=== PATIENT | male | born 1945 | race Caucasian/White ===

== ENCOUNTER 2016-07-14 13:10 | Inpatient (IN) ==
[2016-07-14] MEDS ORDERED: MORPHINE 2 MG/1 ML SYRINGE IV PRN (14:00)
[2016-07-14] MEDS ORDERED: ENOXAPARIN 100 MG/ML SYRINGE SUBCUT STA (14:00)
[2016-07-14] MEDS ORDERED: ASPIRIN 325 MG TABLET PO STA (14:00)
[2016-07-14] MEDS ORDERED: ONDANSETRON 4 MG/2 ML VIAL IV PRN ×2 (14:00→17:42)
--- NOTE | 2016-07-14 14:03 | EKG Report ---
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
[2016-07-14 14:06] LABS: Basophils # 0.1 10*3/uL (0.0-0.2); Basophils % 1.3 % (0.0-0.8); Eosinophils # 0.4 10*3/uL (0.0-0.87); Hematocrit 37.8 VOL% (42.0-52.0); Hemoglobin 12.6 GM/DL (14.0-18.0); Immature Granulocytes Absolute 0.07 #; Lymphocytes # 2.6 10*3/uL (1.4-4.0); Lymphocytes % 36.2 % (21.2-54.2); Mean Corpuscular HGB Conc 33.3 GM/DL (32-36); Mean Corpuscular Hemoglobin 30 PG (27-34); Mean Corpuscular Volume 91.3 FL (87-102); Mean Platelet Volume 10.8 FL (9.6-12.0); Monocytes # 0.6 10*3/uL (0.11-0.8); Monocytes % 8.4 % (1.7-12.7); Neutrophils # 3.4 10*3/uL (1.4-7.4); Neutrophils % 48.1 % (38.7-73.9); Platelet Count 211 T/CUMM (130-400); Red Blood Count 4.14 MC/CUMM (3.8-5.5); Red Cell Distribution Width 14.6 % (9.3-17.3); White Blood Count 7.1 T/CUMM (4-12)
[2016-07-14] MEDS ORDERED: ASPIRIN 325 MG TABLET ONE (14:10)
[2016-07-14] MEDS ORDERED: ENOXAPARIN 80 MG/0.8 ML SYRINGE SUBCUT ONE (14:10)
--- NOTE | 2016-07-14 14:13 | Emergency Department Note ---
Yoly Pichardo Gwan, am scribing for, and in the presence of, Bryan Mercado MD 14:05 . Jess Pichardo James D, MD, personally performed the services described in this documentation, ascribed by Glory Frederick in my presence, and it is both accurate and complete 412 . Arrival - Arrival Chief Complaint: Chest Pain Stated Complaint: chest pain ED Nursing Triage Note: C/O midsternal chest pain with radiation to left arm onset approx 1245 -pt denies pain at present - pt states that he is having left arm numbness now Mode of Arrival: Ambulatory Limitations: No Limitations Source: Patient, Old Records Reviewed, RN Notes Reviewed - History of Present Illness HPI Narrative: Pt is a 71 y/o male, with a hx HTN, who presents to the chest pain with an onset 1245 today. He described his pain as sharp, that is lasted 1 minute and that his chest pain radiates to his left arm. He denies any hx of heart problems, any nausea, SOB, or diaphoresis. Patient has a SHx of smoking 1ppd cigarettes. No other problems/complaints reported in ED. Onset (ago): hour(s) Consistency: constant Severity: moderate Allergies/Adverse Reactions: Allergies Allergy/AdvReac Type Severity Reaction Status Date / Time No Known Allergies Allergy Unverified 07/14/16 13:20 Home Medications: Home Medications Medication Instructions Recorded Confirmed Type Lisinopril 20 mg PO QPM 07/14/16 07/14/16 History amLODIPine [Norvasc] 10 mg PO QAM 07/14/16 07/14/16 History Review of System - Review of System 12 point system: reviewed and no additional remarkable complaints except as stated - Review of System Constitutional: Present: as per HPI, fever. Absent: chills Eyes: Absent: discharge, pain Cardiovascular: Present: as per HPI, chest pain Genitourinary male: Absent: dysuria, frequency, hematuria Musculoskeletal: Present: as per HPI, arm pain. Absent: back pain, leg pain, neck pain Skin: Absent: rash, lesions Neurological: Absent: headache, weakness Medical,Surgical,& Family Hx - Medical History Cardio: History of: Hypertension - Social History Smoking Status: Current every day smoker Frequency of Alcohol Use: None Type of Drug Use: None Exam Physical Examination: GENERAL: This is a well-nourished, well-developed male in no apparent distress. VITAL SIGNS: HEENT: Head is normocephalic and atraumatic. Pupils are equally round and reactive to light. Extraocular movement are intact. Oropharynx is benign with moist mucous membranes. NECK: Neck is soft and supple without tenderness. There are no masses. There is no lymphadenopathy. LUNGS: Lungs are clear to auscultation bilaterally. Chest rises symmetrically. There is no chest wall tenderness. CV: Heart is regular rate and rhythm without murmurs, rubs, or gallops. ABDOMEN: Abdomen is soft, non-tender to palpation. There are no abnormal masses palpated. There is no organomegaly. Bowel sounds are present and active. SKIN: Skin is warm and dry. No rash. EXTREMITIES: Patient has full range of motion without tenderness. There is no pedal edema. NEUROLOGIC: Awake, alert, and oriented x4. Cranial nerves II through XII are grossly intact. There are no motorsensory deficits. PSYCHIATRIC: Normal affect. Normal mood. Vital Signs: Vital Signs Temperature 98.2 F 07/14/16 13:20 Pulse Rate 90 07/14/16 13:20 Respiratory Rate 18 07/14/16 14:44 Blood Pressure 138/86 07/14/16 13:20 O2 Sat by Pulse Oximetry 98 07/14/16 13:20 Course - Consultations Consultation #1: Discussed with hospitalist. Patient will be admitted to their service. Time: 15:33 Results - Labs CBC & BMP: 07/14/16 13:39 07/14/16 13:39 Lab Results: I have reviewed the patients labs Labs: Laboratory Tests 07/14/16 13:39 Troponin I < 0.015 - EKG EKG results: interpreted by ERMD - Impressions EKG: Normal sinus rhythm with a rate of 81, normal ST-T waves, normal axis. - Diagnostic Findings Procedure: Chest x-ray: image reviewed by me (No cardio megaly, no pleural effusions, no infiltrates.) Disposition Clinical Impression: Chest pain, Essential hypertension, Tobacco abuse Case discussed with: patient Disposition: Still a Patient Condition: Stable Time of Disposition: 15:29
[2016-07-14 14:15] LABS: PT Patient Result 10.7 SECS; Partial Thromboplastin Time 30.8 SECS (0-40)
--- NOTE | 2016-07-14 14:21 | XRay Report ---
XR chest 2V Date: 07/14/2016 2:00 PM History: Chest pain Comparison: None Technique: PA and lateral chest Findings: The heart is small and compressed by the over expanded lungs. Calcification in the aortic knob. Probable chronic scarring in the lungs especially at the lung apices with scattered calcified granulomata. Unremarkable mediastinum with degenerative changes. Impression: COPD with evidence for granulomatous disease and prior chronic scarring. No definite acute cardiopulmonary pathology identified. PROCEDURE INTERPRETED AT [facility] DEPARTMENT OF RADIOLOGY Final Report Signed by: Dr. Patricia Barroso
[2016-07-14 14:23] LABS: Alanine Aminotransferase 22 U/L (16-61); Albumin 3.5 G/DL (3.4-5.0); Alkaline Phosphatase 72 U/L (45-117); Aspartate Amino Transferase 15 U/L (0-37); Bilirubin,Total < 0.39 MG/DL (0.2-1.0); Blood Urea Nitrogen 20 MG/DL (7-18); Calcium 8.7 MG/DL (8.5-10.1); Glucose 93 MG/DL (74-106); Magnesium 2.1 MG/DL (1.8-2.4); Osmolality,Calculated 283.3 MOS/KG (273-304); Potassium 4.2 MMOL/L (3.5-5.1); Sodium 141 MMOL/L (136-145); Total Protein 6.2 G/DL (6.4-8.3)
--- NOTE | 2016-07-14 16:58 | Hospitalist History & Physical ---
<Jan Lezama - Last Filed: 07/14/16 17:18> Assessment and Plan (1) Chest pain Status: Acute Assessment and plan: We will admit, hydrate, and complete cardiac work-up. If positive, will consult cardiology. Current Visit: Yes (2) Essential hypertension Status: Acute Assessment and plan: Will resume home medications and manage blood pressure as needed. Current Visit: Yes (3) Tobacco abuse Status: Acute Assessment and plan: Patient is a current smoker. He has expressed no desire to quit. Will offer nicotine patch if requested. Current Visit: Yes History of Present Illness Chief complaint: chest pain History of present illness: This is very pleasant 71 year old male that presented to the ED this afternoon with a chief compliant of chest pain. He has a medical history of hypertension and nicotine abuse. He reported an episode of acute chest pain on today around 1245. He describes the pain as sharp in quality and lasting 1 minute in duration. He denied diaphoresis, nausea, vomiting, jaw pain, or shortness of breath. He was evaluated. Labs were obtained with a BUN of 20 and creatinine of 2.0 His cardiac enzymes were unremarkable at <0.015. After brief discussion with Dr. Mercado and Dr. Hong, the patient will be admitted under the hospitalists services for continuation of care. Home Medications Medication Instructions Recorded Confirmed Type Lisinopril 20 mg PO QPM 07/14/16 07/14/16 History amLODIPine [Norvasc] 10 mg PO QAM 07/14/16 07/14/16 History Allergies Allergy/AdvReac Type Severity Reaction Status Date / Time No Known Allergies Allergy Unverified 07/14/16 13:20 Medical,Surgical,& Family Hx - Medical History Cardio: History of: Hypertension - Social History Smoking Status: Current every day smoker Frequency of Alcohol Use: None Type of Drug Use: None Marital Status: Single Lives With:: Alone Functional capacity: independent ambulation 12 point system: reviewed and no additional remarkable complaints except as stated Exam - Constitutional Vitals: Period Temp Pulse Resp BP Sys/James Pulse Ox Last 24 Hr 98.2 F 90 18-20 138/86 98 General appearance: normal weight, no acute distress - Head Head exam: Present: normal inspection, normocephalic, atraumatic - Eye Eye exam: Present: EOMI. Absent: conjunctival injection, nystagmus Pupils: Present: CAMILA, normal accommodation - ENT ENT exam: Present: normal exam, normal external ear exam, normal oropharynx - Neck Neck exam: Present: normal inspection. Absent: lymphadenopathy, meningismus, tenderness, thyromegaly - Respiratory Respiratory exam: Present: clear to auscultation bilaterally. Absent: rales, rhonchi, stridor, wheezes - Cardiovascular Cardiovascular exam: Present: regular rate and rhythm. Absent: carotid bruit, diastolic murmur, gallop, JVD, rubs, systolic murmur - GI/Abdominal GI/Abdominal exam: Present: normal bowel sounds, soft. Absent: guarding, mass, tenderness - Extremities Exam Extremities exam: Present: normal inspection, full ROM, edema - Back Exam Back exam: Present: normal inspection - Neurological Exam Neurological exam: Present: alert, oriented X3, CN II-XII intact - Psychiatric Psychiatric exam: Present: normal affect, normal mood - Skin Skin exam: Present: normal color, warm, dry Results - Labs CBC & BMP: 07/14/16 13:39 07/14/16 13:39 Lab Results: I have reviewed the past 24 hour labs Quality Measures - VTE Deep Vein Thrombosis/Pulmonary Embolism Present on Admission: No <Danilo Hong - Last Filed: 07/14/16 17:30> History of Present Illness History of present illness: Patient seen and examined with GRETA Lezama, agree with history, assessment and plan as documented. Admit for ACS rule out. Trend troponons. History of smoking and htn, might benefit from a stress test, inpatient vs outpatient. Also has an JW, unknown baseline, will hydrate gently. Exam - Constitutional Vitals: Period Temp Pulse Resp BP Sys/James Pulse Ox Last 24 Hr 71-76 16-16 125-134/71-78 99-100 Results - Labs CBC & BMP: 07/14/16 13:39 07/14/16 13:39
[2016-07-14] MEDS ORDERED: ZALEPLON 5 MG CAPSULE PO PRN (17:42)
[2016-07-14] MEDS ORDERED: ACETAMINOPHEN 325 MG TABLET PO PRN (17:42)
[2016-07-14] MEDS ORDERED: NITROGLYCERIN SL 0.4 MG TABLET SL PRN (17:42)
[2016-07-14] MEDS ORDERED: ENOXAPARIN 40 MG/0.4 ML SYRINGE SUBCUT SCH (18:00)
[2016-07-14 18:13] LABS: Magnesium 2.2 MG/DL (1.8-2.4); Risk Ratio 3.49; VLDL CHOLESTEROL 38.2 MG/DL
[2016-07-14] MEDS: SODIUM CHLORIDE 0.45% 1,000 ML IV SCH (18:25)
--- NOTE | 2016-07-14 19:19 | Ultrasound Report ---
Exam: Carotid ultrasound Date: 07/14/2016 Comparison: None Technique: Duplex scans of the carotid and vertebral arteries using B-mode/Greco scale imaging and Doppler spectral analysis and color flow. Reason: Chest pain, numbness left arm Findings: The right ICA measures 5.7 mm in diameter and the left ICA measures 6.6 mm in diameter. Color-flow documented in the visualized arteries. The peak systolic velocities are as follows: Right CCA: 93.7 cm/s Right ICA: 84.9 cm/s Right ECA: 88.8 cm/s Left CCA: 82.5 cm/s Left ICA: 98.1 cm/s Left ECA: 90.4 cm/s The peak systolic ICA/CCA velocity ratios are as follows: 0.9 on the right and 1.2 on the left. Antegrade flow is present in both vertebral arteries. Impression:[Less than 50% stenosis in both internal carotid arteries with heterogeneous plaque formation especially in the left carotid arteries. Antegrade flow in both vertebral arteries.] The Society of Radiologists in Ultrasound consensus conference criteria was used. The Ultrasound images were captured and stored. PROCEDURE INTERPRETED AT [facility] DEPARTMENT OF RADIOLOGY Final Report Signed by: Dr. Patricia Barroso
--- NOTE | 2016-07-14 19:21 | Ultrasound Report ---
Exam: US renal Bilateral Date: 07/14/2016 5:42 PM Comparison: None Indication: Hypertension Technique:[Multiple transabdominal real-time scans were obtained of the kidneys. Color flow scans obtained. Ultrasound images were captured as ordered.] Findings: Right kidney measures 87 x 36 x 48 mm. Left kidney measures 93 x 51 x 41 mm. 19 mm upper pole and 13 and 18 mm mid pole simple appearing left renal cysts. Inhomogeneous echogenicity in the kidneys with no hydronephrosis. Impression: Generalized cortical loss in the kidneys with inhomogeneous echogenicity which can be seen with medical renal disease. Simple appearing left renal cysts with no hydronephrosis. PROCEDURE INTERPRETED AT [facility] DEPARTMENT OF RADIOLOGY Final Report Signed by: Dr. Patricia Barroso
[2016-07-14] MEDS: CARVEDILOL 6.25 MG TABLET PO SCH (20:44)
[2016-07-14] MEDS: FAMOTIDINE 20 MG TABLET PO SCH (20:44)
[2016-07-14] MEDS ORDERED: LISINOPRIL 20 MG TABLET PO SCH (21:00)
[2016-07-15 07:58] LABS: Basophils # 0.1 10*3/uL (0.0-0.2); Eosinophils # 0.4 10*3/uL (0.0-0.87); Eosinophils % 5.1 % (0.00-10.9); Hematocrit 36.5 VOL% (42.0-52.0); Immature Granulocytes % 0.9 %; Immature Granulocytes Absolute 0.06 #; Lymphocytes # 2.4 10*3/uL (1.4-4.0); Lymphocytes % 34.5 % (21.2-54.2); Mean Corpuscular HGB Conc 32.9 GM/DL (32-36); Mean Corpuscular Hemoglobin 30 PG (27-34); Mean Corpuscular Volume 91.7 FL (87-102); Mean Platelet Volume 10.6 FL (9.6-12.0); Monocytes # 0.7 10*3/uL (0.11-0.8); Monocytes % 9.5 % (1.7-12.7); Neutrophils # 3.4 10*3/uL (1.4-7.4); Platelet Count 187 T/CUMM (130-400); Red Blood Count 3.98 MC/CUMM (3.8-5.5); Red Cell Distribution Width 14.6 % (9.3-17.3); White Blood Count 6.9 T/CUMM (4-12)
[2016-07-15 08:25] LABS: Alanine Aminotransferase 18 U/L (16-61); Albumin 3.3 G/DL (3.4-5.0); Alkaline Phosphatase 68 U/L (45-117); Aspartate Amino Transferase 13 U/L (0-37); Bilirubin,Total < 0.39 MG/DL (0.2-1.0); Blood Urea Nitrogen 18 MG/DL (7-18); Calcium 8.3 MG/DL (8.5-10.1); Glucose 89 MG/DL (74-106); Osmolality,Calculated 279.4 MOS/KG (273-304); Potassium 4.2 MMOL/L (3.5-5.1); Sodium 140 MMOL/L (136-145)
[2016-07-15] MEDS ORDERED: ASPIRIN EC 325 MG TABLET PO SCH (09:00)
[2016-07-15] MEDS ORDERED: NICOTINE 14 MG/24 HR PATCH TRANSDERM SCH (09:00)
[2016-07-15] MEDS: CARVEDILOL 6.25 MG TABLET PO SCH (09:41)
[2016-07-15] MEDS: FAMOTIDINE 20 MG TABLET PO SCH (09:41)
[2016-07-15] MEDS: SODIUM CHLORIDE 0.45% 1,000 ML IV SCH (09:42)
[2016-07-15 15:17] VITALS: BP 131/70
--- NOTE | 2016-07-15 15:52 | Discharge Summary ---
Hospital Course - Hospital Course Hospital Course: 71 year old male that presented to the ED yesterday with a chief compliant of chest pain. He has a medical history of hypertension and nicotine abuse. He reported an episode of acute chest pain on around 12:45 on day of admission. He describes the pain as sharp in quality and lasting only about 1 minute in duration. He denied diaphoresis, nausea, vomiting, jaw pain, or shortness of breath. He was admitted to [facility] to rule ACS. ACS was ruled out with serial Trop. His initial Labs showed a creatinine of 2.0 . Renal US showing features of CKD. His cardiac enzymes were unremarkable at <0.015 x 2. On day of DC pain had completely subsided, no repeat episodes and no EKG changes on admission. He was hemodynamically stable and requested DC to follow up with his PCP as out patient - Time spent with patient Time with patient DS: Greater than 30 minutes Specialty Discharge - Follow Up or Referrals Discharge Plan - Discharge Data Disposition: Disch To Home/Self Care Condition at Discharge: Stable Discharge Diet: advance to your usual diet, low salt diet Activity: resume usual activities as tolerated - Discharge Medications New Carvedilol [Coreg] 6.25 mg PO BID #60 tablet Continue sulfaSALAzine [Sulfasalazine Dr] 500 mg PO DAILY amLODIPine [Norvasc] 10 mg PO QAM Lisinopril 20 mg PO QPM - Follow Up or Referral - Forms/Instructions Instructions: Coronary Artery Disease (GEN), Heart Healthy Diet (GEN), Cigarette Smoking and Your Health (GEN), How to Stop Smoking, Gasket Winder ( GEN) Additional Discharge Instructions: PCP follow up in 1 week Exam - Constitutional Vitals: Period Temp Pulse Resp BP Sys/Jmaes Pulse Ox Last 24 Hr 98.2 F-99.3 F 60-76 16-20 111-145/56-81 95-100 Exam: General appearance: normal weight, no acute distress - Head Head exam: Present: normal inspection, normocephalic, atraumatic - Eye Eye exam: Present: EOMI. Absent: conjunctival injection, nystagmus Pupils: Present: CAMILA, normal accommodation - ENT ENT exam: Present: normal exam, normal external ear exam, normal oropharynx - Neck Neck exam: Present: normal inspection. Absent: lymphadenopathy, meningismus, tenderness, thyromegaly - Respiratory Respiratory exam: Present: clear to auscultation bilaterally. Absent: rales, rhonchi, stridor, wheezes - Cardiovascular Cardiovascular exam: Present: regular rate and rhythm. Absent: carotid bruit, diastolic murmur, gallop, JVD, rubs, systolic murmur - GI/Abdominal GI/Abdominal exam: Present: normal bowel sounds, soft. Absent: guarding, mass, tenderness - Extremities Exam Extremities exam: Present: normal inspection, full ROM, edema - Back Exam Back exam: Present: normal inspection - Neurological Exam Neurological exam: Present: alert, oriented X3, CN II-XII intact - Psychiatric Psychiatric exam: Present: normal affect, normal mood - Skin Skin exam: Present: normal color, warm, dry Discharge Results Labs on day of discharge: Labs from last 24 hours 07/15/16 07/15/16 07/14/16 07:39 07:39 23:52 WBC 6.9 RBC 3.98 Hgb 12.0 L Hct 36.5 L MCV 91.7 MCH 30 MCHC 32.9 RDW 14.6 Plt Count 187 MPV 10.6 Neut % (Auto) 49.0 Lymph % (Auto) 34.5 [place] % (Auto) 9.5 Eos % (Auto) 5.1 Baso % (Auto) 1.0 H Neut # (Auto) 3.4 Lymph # (Auto) 2.4 [place] # (Auto) 0.7 Eos # (Auto) 0.4 Baso # (Auto) 0.1 Immature Gran % 0.9 Nucleated RBC % 0.0 Immature Gran # 0.06 Nucleated RBCs # 0.00 Sodium 140 Potassium 4.2 Chloride 109 H Carbon Dioxide 25 Anion Gap 10.2 BUN 18 Creatinine 1.80 H GFR Calculation 42 BUN/Creatinine Ratio 10.00 Glucose 89 Calculated Osmolality 279.4 Calcium 8.3 L Magnesium 2.0 Total Bilirubin < 0.39 AST 13 ALT 18 Alkaline Phosphatase 68 Troponin I < 0.015 Total Protein 6.0 L Albumin 3.3 L Globulin 2.7 Albumin/Globulin Ratio 1.2 Triglycerides Cholesterol LDL Cholesterol VLDL Cholesterol HDL Cholesterol Heart Disease Risk Ratio 07/14/16 07/14/16 20:13 17:09 WBC RBC Hgb Hct MCV MCH MCHC RDW Plt Count MPV Neut % (Auto) Lymph % (Auto) [place] % (Auto) Eos % (Auto) Baso % (Auto) Neut # (Auto) Lymph # (Auto) [place] # (Auto) Eos # (Auto) Baso # (Auto) Immature Gran % Nucleated RBC % Immature Gran # Nucleated RBCs # Sodium Potassium Chloride Carbon Dioxide Anion Gap BUN Creatinine GFR Calculation BUN/Creatinine Ratio Glucose Calculated Osmolality Calcium Magnesium 2.2 Total Bilirubin AST ALT Alkaline Phosphatase Troponin I < 0.015 Total Protein Albumin Globulin Albumin/Globulin Ratio Triglycerides 191 H Cholesterol 129 LDL Cholesterol 80.0 VLDL Cholesterol 38.2 HDL Cholesterol 37 L Heart Disease Risk Ratio 3.49 - Imaging and Cardiology Procedure: Ultrasound: report reviewed by me DS: Provider Date of admission: 07/14/16 15:42 Primary care physician: . No PCP Attending physician on admission: KRISTINA BOWDEN Consults: 07/14/16 17:42 Consult to Cardiac Rehabilitation [CONS] Routine Reason for Cardiac Rehabilitation: Risk Factor Modification Discharging clinician: Anish Isaacs MD
--- NOTE | 2016-07-15 19:28 | ECHO Report ---
Tobias Garcia Exam Date: 07/15/2016 11:43 Referring Physician: Technologist: Bharati Dinero MALVIN Age: 71 Ht (in): 72 Wt (lb): 161 Gender: M Exam Location: [facility] Echo Indications: Chest pain, unspecified, Essential (primary) hypertension BP: 120 / 60 HR: 66 Rhythm: Sinus Technical Quality: Fair IMPRESSIONS 1. Left ventricle is normal size systolic function with ejection fraction 55%. Normal wall thickness with grade 1 diastolic dysfunction. 2. Left atrium is normal size. 3. Right ventricle mildly increased in size with normal systolic function. 4. Right atrium mild to moderately dilated. 5. Valvular structures overall anatomically normal without any significant Doppler abnormalities. 6. No evidence of significantly elevated right-sided pressures based on tricuspid valve regurgitant velocities MEASUREMENTS (Male / Female) Normal Values 2D ECHO LV Diastolic Diameter PLAX 4.3 cm 4.2 - 5.9 / 3.9 - 5.3 cm LV Systolic Diameter PLAX 3.4 cm LV Fractional Shortening PLAX 20.6 % IVS Diastolic Thickness 1.0 cm 0.6 - 1.0 / 0.6 - 0.9 cm LVPW Diastolic Thickness 1.0 cm 0.6 - 1.0 / 0.6 - 0.9 cm RV Internal Dim ED PLAX 4.2 cm Aortic Root Diameter 3.3 cm LA Systolic Diameter LX 3.2 cm 3.0 - 4.0 / 2.7 - 3.8 cm DOPPLER TR Peak Velocity 235.0 cm/s TR Peak Gradient 22.1 mmHg FINDINGS Left Ventricle Normal left ventricular cavity size. Normal left ventricular wall thickness. Left ventricular ejection fraction is estimated at 55 %. Grade 1 diastolic dysfunction. Right Ventricle Mildly increased right ventricular size. Systolic function appears to be normal. Right Atrium Moderately increased right atrial size. Left Atrium The left atrium is normal in size. Mitral Valve Morphologically normal mitral valve. Trace mitral valve regurgitation. Aortic Valve Morphologically normal aortic valve without significant sclerosis or stenosis. There is no aortic regurgitation. Tricuspid Valve Morphologically normal tricuspid valve. Trace tricuspid valve regurgitation. Tricuspid regurgitation velocities suggest a PAP of 32 mmHg. Pulmonic Valve Morphologically normal pulmonic valve without significant stenosis. There is no pulmonic regurgitation. Pericardium Normal pericardium without effusion. Aorta Normal ascending aorta dimension. Max Pryor MD (Electronically Signed) Final Date: 15 July 2016 19:27
== END 2016-07-15 16:59 | disposition home or self-care (01) | DRG 313 ==
LOC: N.ED 13:10 → SUATTDRO 15:42 → N.EDINP 15:42 → N.TELES 17:32
PROVIDERS: ADMIT Nurse Practitioner; ATTEND Internal Medicine

== ENCOUNTER 2016-08-27 18:20 | Inpatient (IN) ==
[2016-08-27] MEDS ORDERED: METOCLOPRAMIDE 10 MG/2 ML VIAL IV STA (18:31)
[2016-08-27] MEDS ORDERED: METOCLOPRAMIDE 10 MG/2 ML VIAL ONE (18:32)
[2016-08-27] MEDS ORDERED: SODIUM CHLORIDE 0.9% 500 ML IV STA (18:34)
[2016-08-27 19:01] LABS: Basophils # 0.1 10*3/uL (0.0-0.2); Basophils % 0.4 % (0.0-0.8); Eosinophils # 0.2 10*3/uL (0.0-0.87); Hematocrit 41.5 VOL% (42.0-52.0); Hemoglobin 14.3 GM/DL (14.0-18.0); Immature Granulocytes % 0.8 %; Immature Granulocytes Absolute 0.14 #; Lymphocytes # 1.8 10*3/uL (1.4-4.0); Lymphocytes % 9.8 % (21.2-54.2); Mean Corpuscular HGB Conc 34.5 GM/DL (32-36); Mean Corpuscular Hemoglobin 31 PG (27-34); Mean Corpuscular Volume 88.9 FL (87-102); Mean Platelet Volume 10.7 FL (9.6-12.0); Monocytes % 5.8 % (1.7-12.7); Neutrophils # 14.7 10*3/uL (1.4-7.4); Neutrophils % 82.2 % (38.7-73.9); Platelet Count 294 T/CUMM (130-400); Red Blood Count 4.67 MC/CUMM (3.8-5.5); Red Cell Distribution Width 14.2 % (9.3-17.3); White Blood Count 17.8 T/CUMM (4-12)
[2016-08-27 19:18] LABS: Alanine Aminotransferase 22 U/L (16-61); Albumin 3.7 G/DL (3.4-5.0); Alkaline Phosphatase 93 U/L (45-117); Aspartate Amino Transferase 15 U/L (0-37); Bilirubin,Total < 0.39 MG/DL (0.2-1.0); Blood Urea Nitrogen 25 MG/DL (7-18); Calcium 9.6 MG/DL (8.5-10.1); Glucose 110 MG/DL (74-106); Osmolality,Calculated 281.5 MOS/KG (273-304); Potassium 4.2 MMOL/L (3.5-5.1); Sodium 139 MMOL/L (136-145); Total Protein 7.3 G/DL (6.4-8.3)
[2016-08-27] MEDS ORDERED: PROMETHAZINE 25 MG/1 ML VIAL ONE (20:33)
[2016-08-27] MEDS ORDERED: PROMETHAZINE 25 MG/1 ML VIAL IM STA (20:41)
--- NOTE | 2016-08-27 21:07 | CT Report ---
CT abdomen pelvis wo con Indication: Lower abdominal pain Comparison: None. Technique: CT of the abdomen and pelvis was performed without administration of intravenous contrast. Coronal and sagittal reformatted images were additionally created and submitted for review. The total DLP is 308 mGy*cm. Dose reduction: This CT exam was performed using one or more of the following dose reduction techniques: Automated exposure control, automated adjustment of the mA and/or KV according to patient size, or use of iterative reconstruction technique. Findings: Very minimal posterior basilar dependent atelectatic changes are noted bilaterally. Lung bases are otherwise clear. There is no pleural or pericardial effusion. ABDOMEN: Liver/Gallbladder: No biliary ductal dilatation or gallstones. Unenhanced liver is otherwise grossly within normal limits. Spleen: No acute findings. Pancreas: No acute findings. Adrenals: Within normal limits in appearance. Kidneys: Both kidneys are essentially symmetric in size with no evidence of calculi or hydronephrosis. There is no hydroureter. No bladder calculi are visualized. There are bilateral exophytic hypodense renal lesions. On the left, the lesion measures up to 1.8 cm and is slightly hyperdense and may represent a cyst containing hemorrhagic or proteinaceous contents. When reviewing prior studies, a prior renal ultrasound 07/14/2016, this lesion likely corresponds to a cystic (not solid) lesion seen previously. A solid lesion would be an alternate consideration. At the lower pole the right kidney, there is a hypodense 2.2 cm lesion which is most compatible with a simple cyst. Bowel/mesentery: There is somewhat prominent small bowel dilatation within the central upper abdomen with a focal transition point in the right lower quadrant (axial image 108). No definite focal lesion is identified at this area although there is suggestion of mild mucosal edema. Lack of oral and intravenous contrast limits evaluation. No free fluid/air within the abdomen. No mesenteric adenopathy. Multiple colonic diverticula are noted. There is no CT evidence of acute diverticulitis Retroperitoneum: No evidence of aortic aneurysm or significant retroperitoneal adenopathy. PELVIS: Bladder is unremarkable for degree of distention. Prostate is not enlarged. No free fluid. No adenopathy in the pelvis. BONES: No acute or suspicious osseous abnormalities are identified. IMPRESSION: Moderate diffuse small bowel distention with transition point in the right lower quadrant most compatible with high-grade partial small bowel obstruction. A definite focal lesion is not identified and the findings may be related to prior surgery/adhesions. Clinical correlation is recommended. No free fluid/air within the abdomen. 08/27/2016 8:54 PM PROCEDURE INTERPRETED AT [facility] DEPARTMENT OF RADIOLOGY Final Report Signed by: Chan Terry
[2016-08-27] MEDS ORDERED: SODIUM CHLORIDE 0.9% 1,000 ML IV STA (21:33)
[2016-08-27] MEDS ORDERED: MORPHINE 2 MG/1 ML SYRINGE IV STA (21:34)
[2016-08-27] MEDS ORDERED: MORPHINE 2 MG/1 ML SYRINGE ONE (21:40)
--- NOTE | 2016-08-27 22:20 | Emergency Department Note ---
Kalee Pichardo Kasabria, am scribing for, and in the presence of, Edel Sparrow MD 18:38. Kyara Pichardo Leanne, MD, personally performed the services described in this documentation, ascribed by Yecenia Granda in my presence, and it is both accurate and complete . Arrival - Arrival Chief Complaint: Nausea/Vomiting/Diarrhea Stated Complaint: N/V ED Nursing Triage Note: Pt c/o Upper abd pain, weakness, nausea, and vomiting x 6 since 0900 this am. Denies diarrhea. Mode of Arrival: Stretcher Limitations: No Limitations Source: Patient - History of Present Illness HPI Narrative: This is a 71 y/o white male presenting to the ED with c/o abdominal pain, weakness, nausea, vomiting but denies diarrhea that onset at 0900 this morning. The vomiting on at 11:30am. Pt has a PMHx of Crohn's disease. He is a patient of Dr. Bond. His last flare up was 20 years ago. He has some chills but denies fever, diarrhea, back pain, PEREZ, vision change, vertigo, hematochezia, and dysuria. His last BM was normal. Consistency: constant Severity: moderate Allergies/Adverse Reactions: Allergies Allergy/AdvReac Type Severity Reaction Status Date / Time No Known Allergies Allergy Unverified 08/27/16 18:21 Home Medications: Home Medications Medication Instructions Recorded Confirmed Type Lisinopril 20 mg PO QPM 07/14/16 08/27/16 History amLODIPine [Norvasc] 10 mg PO QAM 07/14/16 08/27/16 History sulfaSALAzine [Sulfasalazine Dr] 500 mg PO DAILY 07/14/16 08/27/16 History Review of System - Review of System 12 point system: reviewed and no additional remarkable complaints except as stated - Review of System Constitutional: Absent: chills, fever, weakness Eyes: Absent: vision change Head/Ears/Nose/Throat: Absent: nasal drainage Respiratory: Absent: cough, wheezing Cardiovascular: Absent: chest pain, dyspnea on exertion Gastrointestinal: Present: abdominal pain, nausea, vomiting. Absent: diarrhea Genitourinary male: Absent: dysuria Musculoskeletal: Absent: arm pain, back pain, leg pain, neck pain Skin: Absent: rash Neurological: Absent: headache, weakness, confusion, vertigo Psychiatric: Absent: anxiety Endocrine: Absent: fatigue Hematological/Lymphatic: Absent: easy bleeding Allergic/Immunologic: Absent: facial swelling Medical,Surgical,& Family Hx - Medical History Cardio: History of: Hypertension Genitourinary: History of: Prostate Problems (cancer) Gastrointestinal: History of: Crohn's Disease (remission) - Surgical History Abdominal Surgeries: Surgical HX of: Appendectomy - Family History Family History: Reports;: Family Hypertension - Social History Smoking Status: Current every day smoker Exam Vital Signs: Vital Signs Temperature 98.0 F 08/27/16 18:50 Pulse Rate 93 H 08/27/16 18:50 Respiratory Rate 18 08/27/16 18:50 Blood Pressure 132/98 08/27/16 18:50 O2 Sat by Pulse Oximetry 99 08/27/16 18:23 - General General appearance: alert, in no apparent distress - Head Head exam: Present: atraumatic, normocephalic, normal inspection - Eye Eye exam: Present: normal appearance, PERRL, EOMI - ENT ENT exam: Present: normal exam, normal oropharynx, mucous membranes moist, TM's normal bilaterally, normal external ear exam - Neck Neck exam: Present: normal inspection, full ROM, trachea midline. Absent: tenderness - Chest Chest inspection: Present: normal inspection, symmetric chest wall rise. Absent : tenderness - Respiratory Respiratory exam: Present: normal lung sounds bilaterally - Cardiovascular Cardiovascular exam: Present: regular rate, normal rhythm, normal heart sounds - Abdominal Exam Abdominal exam: Present: soft, distention (mildly distended ), normal bowel sounds. Absent: tenderness - Extremities Exam Extremities exam: Present: normal inspection, full ROM, normal capillary refill. Absent: tenderness, pedal edema, calf tenderness - Back Exam Back exam: Present: normal inspection, full ROM. Absent: tenderness - Neurological Exam Neurological exam: Present: alert, oriented X3, CN II-XII intact, normal gait, reflexes normal - Psychiatric Psychiatric exam: Present: normal affect, normal mood - Skin Skin exam: Present: warm, dry, intact, normal color. Absent: rash, diaphoresis Results - Labs CBC & BMP: 08/27/16 18:49 08/27/16 18:49 Lab Results: I have reviewed the patients labs Labs: Laboratory Tests 08/27/16 08/27/16 18:49 18:49 WBC 17.8 H RBC 4.67 Hgb 14.3 Hct 41.5 L MCV 88.9 MCH 31 MCHC 34.5 RDW 14.2 Plt Count 294 MPV 10.7 Neut % (Auto) 82.2 H Lymph % (Auto) 9.8 L [place] % (Auto) 5.8 Eos % (Auto) 1.0 Baso % (Auto) 0.4 Neut # (Auto) 14.7 H Lymph # (Auto) 1.8 [place] # (Auto) 1.0 H Eos # (Auto) 0.2 Baso # (Auto) 0.1 Immature Gran % 0.8 Nucleated RBC % 0.0 Immature Gran # 0.14 Nucleated RBCs # 0.00 Sodium 139 Potassium 4.2 Chloride 106 Carbon Dioxide 23 Anion Gap 14.2 BUN 25 H Creatinine 2.10 H GFR Calculation 35 BUN/Creatinine Ratio 11.00 Glucose 110 H Calculated Osmolality 281.5 Calcium 9.6 Total Bilirubin < 0.39 AST 15 ALT 22 Alkaline Phosphatase 93 Total Protein 7.3 Albumin 3.7 Globulin 3.6 H Albumin/Globulin Ratio 1.0 L Lipase 154.0 - Diagnostic Findings Procedure: CT Abdomen and Pelvis: report reviewed by me (Moderate diffuse small bowel distention with transition point in the right lower quadrant most compatible with highg-bowel obstruction. A definite focal lesion is not identified and the findings may be related to prior surgery/adhesions. Clincal correlation is recommended. No free/fluid/air within the abdomen.) Disposition Clinical Impression: Partial small bowel obstruction Case discussed with: patient Additional Instructions: admit to hospitalist
--- NOTE | 2016-08-27 23:04 | Hospitalist History & Physical ---
Assessment and Plan (1) Partial small bowel obstruction Status: Acute Current Visit: Yes (2) Crohns disease Status: Acute Current Visit: Yes Qualifiers: Gastrointestinal tract location: small intestine Digestive disease complication type: unspecified complication Qualified Code(s): K50.019 - Crohn 's disease of small intestine with unspecified complications (3) Essential hypertension Status: Acute Current Visit: No (4) Tobacco abuse Status: Acute Current Visit: No (5) Chronic kidney disease, stage 3 Status: Acute Assessment and plan: Plan: Conservative management at this time. No NG tube for now, unless intractable nausea and vomiting occur N.p.o. except meds GI and surgical evaluation Gentle hydration, supportive care for pain and nausea Current Visit: Yes History of Present Illness Chief complaint: Acute onset abdominal pain nausea and vomiting History of present illness: Mr. Garcia is a 71 year old male with Crohn's disease, hypertension, history of appendectomy and prostate surgery, who is here with acute onset of abdominal pain and nausea and vomiting around 9 AM today. He denies hematemesis. He denies flatus or BM today. His last bowel movement was yesterday. He had a CT abdomen pelvis showing high-grade partial SBO, and possible adhesions. His pain is rated an 8 out of 10 at worst, relieved with pain medication in the ER. His nausea has been relieved with antiemetics. He has diffuse lower abdominal pain, nonradiating. His symptoms have been constant and worsening since this morning. Home Medications Medication Instructions Recorded Confirmed Type Lisinopril 20 mg PO QPM 07/14/16 08/27/16 History amLODIPine [Norvasc] 10 mg PO QAM 07/14/16 08/27/16 History sulfaSALAzine [Sulfasalazine Dr] 500 mg PO DAILY 07/14/16 08/27/16 History Allergies Allergy/AdvReac Type Severity Reaction Status Date / Time No Known Allergies Allergy Unverified 08/27/16 18:21 Medical,Surgical,& Family Hx - Medical History Cardio: History of: Hypertension Genitourinary: History of: Prostate Problems (cancer) Gastrointestinal: History of: Crohn's Disease (remission) - Surgical History Abdominal Surgeries: Surgical HX of: Appendectomy - Family History Family History: Reports;: Family Hypertension - Social History Smoking Status: Current every day smoker Frequency of Alcohol Use: None Type of Drug Use: None Marital Status: Unknown Functional capacity: independent ambulation Review of systems: A 12 point review of systems is negative except as specified in the HPI Exam - Constitutional Vitals: Period Temp Pulse Resp BP Sys/James Pulse Ox Last 24 Hr 98.0 F-98.0 F 93-93 18-18 132-132/98-98 99 Exam: EXAM: CONSTITUTIONAL: non toxic, NAD HEENT: NC, AT, OP benign, CAMILA, EOMI CV: RRR + 2/6 systolic ejection murmur RESP: clear B/L, no w/r/r GI: abd soft, mild diffuse lower abdominal tenderness, ND, + hypoactive bowel sounds INTEGUMENTARY: no lesions or rash EXTREMITIES: no c/c/e NEURO: no focal deficits PSYCH: unremarkable, A/O x3 Results - Labs CBC & BMP: 08/28/16 00:24 08/28/16 00:25 Lab Results: I have reviewed the past 24 hour labs - Diagnostic Findings Procedure: CT Abdomen and Pelvis: image reviewed by me, report reviewed by me
[2016-08-27] MEDS ORDERED: ACETAMINOPHEN 325 MG TABLET PO PRN (23:10)
[2016-08-27] MEDS ORDERED: ONDANSETRON 4 MG/2 ML VIAL IV PRN (23:10)
[2016-08-27] MEDS ORDERED: MORPHINE 2 MG/1 ML SYRINGE IV PRN (23:10)
[2016-08-27] MEDS ORDERED: METOPROLOL TARTRATE 5 MG/5 ML VIAL IV PRN (23:14)
[2016-08-27] MEDS ORDERED: hydrALAZINE 20 MG/1 ML VIAL IV PRN (23:14)
[2016-08-28 00:57] LABS: Basophils # 0.1 10*3/uL (0.0-0.2); Basophils % 0.4 % (0.0-0.8); Eosinophils # 0.1 10*3/uL (0.0-0.87); Eosinophils % 0.4 % (0.00-10.9); Hematocrit 39.4 VOL% (42.0-52.0); Hemoglobin 13.2 GM/DL (14.0-18.0); Immature Granulocytes Absolute 0.16 #; Lymphocytes # 1.7 10*3/uL (1.4-4.0); Lymphocytes % 9.9 % (21.2-54.2); Mean Corpuscular HGB Conc 33.5 GM/DL (32-36); Mean Corpuscular Hemoglobin 30 PG (27-34); Mean Corpuscular Volume 89.5 FL (87-102); Monocytes # 0.8 10*3/uL (0.11-0.8); Monocytes % 4.6 % (1.7-12.7); Neutrophils # 13.9 10*3/uL (1.4-7.4); Neutrophils % 83.7 % (38.7-73.9); Platelet Count 289 T/CUMM (130-400); White Blood Count 16.6 T/CUMM (4-12)
[2016-08-28 01:10] LABS: Alanine Aminotransferase 15 U/L (16-61); Albumin 3.3 G/DL (3.4-5.0); Alkaline Phosphatase 82 U/L (45-117); Aspartate Amino Transferase 17 U/L (0-37); Bilirubin,Total < 0.39 MG/DL (0.2-1.0); Blood Urea Nitrogen 25 MG/DL (7-18); Glucose 120 MG/DL (74-106); Osmolality,Calculated 285.3 MOS/KG (273-304); Potassium 4.8 MMOL/L (3.5-5.1); Sodium 141 MMOL/L (136-145); Total Protein 6.2 G/DL (6.4-8.3)
[2016-08-28] MEDS: DEXTROSE 5% NACL 0.45% 1,000 ML IV SCH (01:55)
[2016-08-28] MEDS: CIPROFLOXACIN INJ 400 MG in PREMIX 1 EACH IV SCH ×3 (01:57→23:55)
[2016-08-28] MEDS: methylPREDNISolone SOD SUC 40 MG/1 ML VIAL IV SCH ×4 (02:01→23:55)
[2016-08-28] MEDS: metroNIDAZOLE INJ 500 MG in PREMIX 1 EACH IV SCH ×4 (04:11→23:55)
--- NOTE | 2016-08-28 09:58 | Hospitalist Progress Note ---
Assessment and Plan (1) Essential hypertension Status: Acute Assessment and plan: Controlled prn metoprolol and hydralazine Current Visit: No (2) Tobacco abuse Status: Acute Current Visit: No (3) Partial small bowel obstruction Status: Acute Assessment and plan: Surgery consulted, NPO for now Patient clinically improving Current Visit: Yes (4) Crohns disease Status: Acute Current Visit: Yes Qualifiers: Gastrointestinal tract location: small intestine Digestive disease complication type: unspecified complication Qualified Code(s): K50.019 - Crohn 's disease of small intestine with unspecified complications (5) Chronic kidney disease, stage 3 Status: Acute Assessment and plan: Creatinine is 2.0, baseline Current Visit: Yes Hospitalist: Subjective Interval history: No acute events overnight. Patient reports that he feels much better today. Denies abdominal pain or nausea. Exam - Constitutional Vitals: Period Temp Pulse Resp BP Sys/James Pulse Ox Last 24 Hr 98.0 F-100.0 F 73-93 16-20 108-142/67-98 97-100 General appearance: normal weight - Head Head exam: Present: normocephalic, atraumatic - Eye Eye exam: Present: EOMI Pupils: Present: CAMILA - ENT ENT exam: Present: normal exam - Neck Neck exam: Present: normal inspection - Respiratory Respiratory exam: Present: clear to auscultation bilaterally. Absent: wheezes - Cardiovascular Cardiovascular exam: Present: regular rate and rhythm - GI/Abdominal GI/Abdominal exam: Present: hypoactive bowel sounds, soft. Absent: tenderness, rebound - Extremities Exam Extremities exam: Present: normal inspection - Back Exam Back exam: Present: normal inspection - Neurological Exam Neurological exam: Present: alert, oriented X3 - Psychiatric Psychiatric exam: Present: normal affect, normal mood - Skin Skin exam: Present: warm, intact Results - Labs CBC & BMP: 08/28/16 00:24 08/28/16 00:25
--- NOTE | 2016-08-28 09:59 | XRay Report ---
XR abdomen 1V Clinical Information: Abdominal Pain nausea and vomiting Comparison: None Findings: Bowel gas pattern is nonspecific and within normal limits. No abnormally gas-filled dilated small bowel loops are identified to suggest obstruction. There is no free air identified. Scattered fecal material is noted throughout colon, which is otherwise nondilated. No abnormal focal soft tissue masses or calcific densities are identified in the abdomen or pelvis. Lung bases appear predominantly clear. There is no acute osseous abnormality. No suspicious osseous lesions are identified. Impression: No acute radiographic abnormality in the abdomen. Correlate with CT abdomen and pelvis dated 08/27/2016 for additional findings. PROCEDURE INTERPRETED AT [facility] DEPARTMENT OF RADIOLOGY Final Report Signed by: Chan Terry
--- NOTE | 2016-08-28 10:49 | General Surgery Consult Note ---
Assessment and Plan - Time spent with patient Time spent with patient: Less than 30 minutes (1) Crohns disease Status: Acute Assessment and plan: Impression: Crohn's disease with possible partial small bowel obstruction. Plan: Agree with present antibiotics. 2. Observation and IV fluids. 3. GI consult. 4. Primarily medical management. Current Visit: Yes Qualifiers: Gastrointestinal tract location: small intestine Digestive disease complication type: unspecified complication Qualified Code(s): K50.019 - Crohn 's disease of small intestine with unspecified complications History of Present Illness Chief complaint: Nausea and vomiting with abdominal pain history of Crohn's disease History of present illness: Mr. Garcia is a 71 year old male white who apparently was diagnosed to have Crohn's disease some 30 years ago has been on Azulfidine since. He has appendix removed 30 years ago and that is how they discovered that he had Crohn' s disease. Apparently he has done well without any problems until last night when he came in because of some nausea and vomiting. His labs did not look unusually bad with slight elevation of white count at this time. CT scan was performed that may be a partial small bowel obstruction fluid in the small bowel present at this time but really unremarkable. He was put in on some IV antibiotics we will consult to see him. Since the symptoms are most likely related somewhat to her flareup of Crohn's disease he would not be a surgical candidate at this point time. We need to treat him aggressively to get any potential Crohn's under control and to decide whether or not he is a candidate for Humira. Will let GI have a look at him and see what they think they need to go with him and give him a little time to see if he is going to resolve and not require any more than just supportive care. Home Medications Medication Instructions Recorded Confirmed Type Lisinopril 20 mg PO QPM 07/14/16 08/27/16 History amLODIPine [Norvasc] 10 mg PO QAM 07/14/16 08/27/16 History sulfaSALAzine [Sulfasalazine Dr] 500 mg PO DAILY 07/14/16 08/27/16 History Allergies Allergy/AdvReac Type Severity Reaction Status Date / Time No Known Allergies Allergy Unverified 08/27/16 18:21 Medical,Surgical,& Family Hx - Medical History Cardio: History of: Hypertension Genitourinary: History of: Prostate Problems (cancer) Gastrointestinal: History of: Crohn's Disease (remission) - Surgical History Abdominal Surgeries: Surgical HX of: Appendectomy - Family History Family History: Reports;: Family Hypertension - Social History Smoking Status: Current every day smoker Frequency of Alcohol Use: None Type of Drug Use: None 12 point system: reviewed and no additional remarkable complaints except as stated Exam - Constitutional Vitals: Period Temp Pulse Resp BP Sys/James Pulse Ox Last 24 Hr 98.0 F-100.0 F 73-93 16-20 108-142/67-98 97-100 General appearance: no acute distress - Head Head exam: Present: normal inspection - ENT ENT exam: Present: normal exam - Neck Neck exam: Present: normal inspection - Respiratory Respiratory exam: Present: clear to auscultation bilaterally - Cardiovascular Cardiovascular exam: Present: RRR - GI/Abdominal GI/Abdominal exam: Present: hypoactive bowel sounds, soft. Absent: distended, mass, tenderness - Extremities Exam Extremities exam: Present: normal inspection - Back Exam Back exam: Present: normal inspection - Neurological Exam Neurological exam: Present: alert, oriented X3, CN II-XII intact - Skin Skin exam: Present: normal color, warm, dry Results - Labs CBC & BMP: 08/28/16 00:24 08/28/16 00:25 Lab Results: I have reviewed the past 24 hour labs - Diagnostic Findings Procedure: CT Abdomen and Pelvis: report reviewed by me (CT changes noted without clear area of the obstruction)
--- NOTE | 2016-08-28 10:51 | Gastrointestinal Consult Note ---
Assessment and Plan - Time spent with patient Time spent with patient: Greater than 30 minutes (1) Crohns disease Status: Acute Current Visit: Yes Qualifiers: Gastrointestinal tract location: small intestine Digestive disease complication type: unspecified complication Qualified Code(s): K50.019 - Crohn 's disease of small intestine with unspecified complications (2) Partial small bowel obstruction Status: Acute Current Visit: Yes (3) Other specified counseling Status: Acute Current Visit: Yes History of Present Illness History of present illness: Mr. Garcia is a 71 year old male Home Medications Medication Instructions Recorded Confirmed Type Lisinopril 20 mg PO QPM 07/14/16 08/27/16 History amLODIPine [Norvasc] 10 mg PO QAM 07/14/16 08/27/16 History sulfaSALAzine [Sulfasalazine Dr] 500 mg PO DAILY 07/14/16 08/27/16 History Allergies Allergy/AdvReac Type Severity Reaction Status Date / Time No Known Allergies Allergy Unverified 08/27/16 18:21 Medical,Surgical,& Family Hx - Medical History Cardio: History of: Hypertension Genitourinary: History of: Prostate Problems (cancer) Gastrointestinal: History of: Crohn's Disease (remission) - Surgical History Abdominal Surgeries: Surgical HX of: Appendectomy - Family History Family History: Reports;: Family Hypertension - Social History Smoking Status: Current every day smoker Frequency of Alcohol Use: None Type of Drug Use: None Exam - Constitutional Vitals: Period Temp Pulse Resp BP Sys/James Pulse Ox Last 24 Hr 98.0 F-100.0 F 73-93 16-20 108-142/67-98 97-100 Results - Labs CBC & BMP: 08/28/16 00:24 08/28/16 00:25 Note Addendum: PLEASE NOTE -- automatic citation of patient information is unavoidable in this electronic note. I have made a reasonable effort to review the information cited , but it is not a part of my evaluation, impression, or recommendation unless specifically discussed in the dictated text that follows. As well, voice recognition software was used in the creation of this clinical note. Reasonable effort was made to identify and correct gross errors. Despite proofreading, errors in staff midwife/apprenticeship director may be present, including nonsense verbiage at times. If you encounter such an error, please contact me at for discussion and correction. -- Dorene Chief complaint: abdominal pain, partial small bowel obstruction History of present illness: This is a new patient, a 71-year-old male with prior diagnosis of Crohn's disease seen by consultation for evaluation of abdominal pain and partial small bowel obstruction. The patient is admitted to the hospitalist service under the care of Dr. Hong with a primary diagnosis of same. The patient was admitted through the emergency department yesterday with primary complaint of nausea, vomiting, and abdominal pain. Evaluation at that time revealed leukocytosis and partial small bowel obstruction as mentioned. The patient was started on crystalloid support, intravenous steroid, and broad- spectrum antibiotic. With this, he reports improvement of symptoms overnight. He now reports feeling well. He has not eaten since he has been here but does have a tray of clear liquid dinner available at bedside. He has not seen a correctional facility psychiatrist for management of his crimes disease for more than 10 years. He was previously seen by Dr. Green. He has been on sulfasalazine for many years and reports that he has rarely had an exacerbation of symptoms. His usual bowel pattern is fluctuated with three or four bowel movements per day, sometimes firm, sometimes soft. He rarely if ever sees blood in his stool. His last endoscopic evaluation was about three years ago when he was admitted at [facility] under similar circumstances. He is anxious to go home. Patient denies fever, chills, night sweats, rigors, headache, dizziness, neck pain, visual changes, redness of the eyes, dysphagia, odynophagia, difficulty chewing, chest pain, shortness of breath, regurgitation, hematemesis, proctalgia , constipation, dysuria, skin changes, temperature regulation issues, flushing, easy bleeding/bruising, musculoskeletal pain, mental status change, numbness/ weakness in the extremities, yellowing of the eyes/skin, cutaneous eruptions, allergies to food or drug, family history of gastrointestinal cancer and colon polyps, and other complaints in general. Review of systems: 12 point review of systems was negative except as documented above. Outpatient medications: sulfasalazine, Norvasc, lisinopril Inpatient medications: Tylenol, ciprofloxacin, Flagyl, Solu-Medrol, D51/2NS infusion, hydralazine, [place], Zofran, sulfasalazine Past Medical History: Crohn's disease, hypertension, prostate cancer Social history: positive tobacco. Negative alcohol Family history: no gastrointestinal cancers Physical examination: Vital Signs: Current vital signs reviewed and documented above. General Appearance: well-appearing. Not acutely ill. Head: Normocephalic. Neck: Palpation of the neck revealed no abnormalities. Eyes: No scleral icterus. No scleral injection. No conjunctival pallor. Oral Cavity: Odor of breath was normal. No drooling was observed. Lips showed no abnormalities. Floor of the mouth showed no abnormalities. Pharynx: Oropharynx was normal. Lungs: Respiration rhythm and depth was normal. Cardiovascular: Heart rate and rhythm were normal. No murmurs were appreciated. Abdomen: abdomen was not distended. Abdominal palpation revealed no tenderness and no hepatosplenomegaly. Ascites was not discovered. Abdominal auscultation revealed positive bowel sounds. Musculoskeletal System: Musculoskeletal system was grossly normal. Neurological: level of consciousness was normal. Speech was normal. Skin: General appearance was normal. Color and pigmentation were normal. No skin lesions. Laboratory: white blood count 16.6, hemoglobin 13.2, hematocrit 39.4, platelets 289, ALT 15, AST 17, alkaline phosphatase 82, total protein 6.2, albumin 3.3 Radiology: -- abdominal plane film, August 28, 2016: no acute abnormality in the abdomen -- CT of the abdomen and pelvis, August 27, 2016: moderate diffuse small bowel distention with transition point in the right lower quadrant most compatible with high-grade partial small bowel obstruction; definite focal lesions not identified Impressions: 1. Partial small bowel obstruction -- the patient seems to have had spontaneous reduction of the small bowel obstruction. Follow up plane film reveals no dilation of the intestinal lumen. The patient feels well at present with no discomfort. He will need endoscopic evaluation in the near future but this does not need to be done urgently. He also needs to have a correctional facility psychiatrist that sees him regularly for management of his Crohn's disease. It would be reasonable to continue him on broad-spectrum antibiotic for about two weeks. It would also be reasonable to continue him on oral steroid, in a tapering fashion , for 1 to 2 months. The patient is anxious to discharge home but I would recommend observation at least through the evening tonight to allow him opportunity to advance through clear liquids into a regular diet. I will sign his case out to Dr. Villavicencio and he can follow-up in the outpatient clinic. 2. Crohn's disease -- as discussed above. 3. Other specified counseling -- The patient was seen for greater than 30 minutes. The patient was counseled for greater than 50% of this time regarding differential diagnosis, likely diagnosis, diagnostic and therapeutic alternatives, risks/benefits/alternatives of medications and procedures, and plan of care generally. The patient expressed understanding and wishes to proceed. Recommendations: -- liquid diet at dinner, advance at breakfast if tolerated -- continue sulfasalazine -- continue broad-spectrum antibiotic for two weeks -- continue oral steroid, tapered over 1 to 2 months -- follow-up in the outpatient gastroenterology clinic for consideration of endoscopic evaluation -- thank you for this consultation. Dr. Villavicencio will assume G.I. care for this patient tomorrow.
[2016-08-28] MEDS: sulfaSALAzine 500 MG TABLET PO SCH ×2 (13:12→13:17)
[2016-08-29 06:09] LABS: Basophils % 0.1 % (0.0-0.8); Immature Granulocytes Absolute 0.21 #; Lymphocytes # 1.5 10*3/uL (1.4-4.0); Lymphocytes % 7.2 % (21.2-54.2); Mean Corpuscular HGB Conc 34.3 GM/DL (32-36); Mean Corpuscular Hemoglobin 31 PG (27-34); Mean Corpuscular Volume 89.5 FL (87-102); Monocytes # 0.8 10*3/uL (0.11-0.8); Monocytes % 3.7 % (1.7-12.7); Neutrophils # 18.3 10*3/uL (1.4-7.4); Platelet Count 241 T/CUMM (130-400); Red Blood Count 3.91 MC/CUMM (3.8-5.5); Red Cell Distribution Width 14.4 % (9.3-17.3); White Blood Count 20.8 T/CUMM (4-12)
[2016-08-29 06:38] LABS: Hypochromasia Slight; Microcytosis Slight
[2016-08-29 06:39] LABS: Calcium 8.8 MG/DL (8.5-10.1); Magnesium 2.2 MG/DL (1.8-2.4); Osmolality,Calculated 284.4 MOS/KG (273-304); Platelet Estimate Normal; Potassium 4.8 MMOL/L (3.5-5.1)
[2016-08-29] MEDS: methylPREDNISolone SOD SUC 40 MG/1 ML VIAL IV SCH ×2 (08:41→17:42)
[2016-08-29] MEDS: metroNIDAZOLE INJ 500 MG in PREMIX 1 EACH IV SCH ×2 (08:43→17:42)
[2016-08-29] MEDS: sulfaSALAzine 500 MG TABLET PO SCH (08:46)
[2016-08-29] MEDS: DEXTROSE 5% NACL 0.45% 1,000 ML IV SCH ×3 (08:47→17:40)
[2016-08-29] MEDS ORDERED: amLODIPine 10 MG TABLET PO SCH (09:00)
--- NOTE | 2016-08-29 09:26 | Gastrointestinal Progress Note ---
Assessment and Plan (1) Partial small bowel obstruction Status: Acute Assessment and plan: 08/29-no complaints of abdominal pain. Tolerating diet at present time. Afebrile. No bowel movement or flatus since admission. Last bowel movement Monday. [place] records pending. Continuing IV antibiotics at this time. Plan an addendum to followed by Dr. Villavicencio. Current Visit: Yes Gastroenterology - PN: Subj Interval history: CC: Abdominal pain, partial SBO Patient is seen awake alert sitting up in bed. States he had an uneventful night. He was admitted on Monday with onset of abdominal pain, nausea vomiting that began approximately Monday morning. States that his that day progressed the pain became more severe nature. He has a history of Crohn's however states he has not required treatment for this in many years. His last endoscopy was done at [facility] approximately 3 years ago with EGD and colonoscopy. He cannot recall what the findings were at that time. The pain is much improved at this time. He is tolerating clear liquid diet. Denies any nausea vomiting or abdominal pain. Other than some mild soreness. Afebrile. WBCs are mildly elevated at 20,000 however he is currently on steroid therapy. CT of abdomen on admission showed moderate diffuse small bowel distention with transition point in the right lower quadrant. His only surgical history is reported to be surgery related to his prostate cancer years ago. He reports that he has not been following up regularly for his Crohn's disease. Abdomen soft, nontender. ROS: Denies shortness of breath chest pain Exam (Progress Note) - Constitutional Vitals: Period Temp Pulse Resp BP Sys/James Pulse Ox Last 24 Hr 97.7 F-98.5 F 73-88 17-18 109-130/62-75 94-100 General appearance: normal weight, no acute distress - Head Head exam: Present: normal inspection, normocephalic - Eye Eye exam: Present: other (Lids and conjunctivae are unremarkable). Absent: scleral icterus - ENT ENT exam: Present: normal exam, normal oropharynx - Neck Neck exam: Present: normal inspection - Respiratory Respiratory exam: Present: clear to auscultation bilaterally. Absent: rales, rhonchi, wheezes - Cardiovascular Cardiovascular exam: Present: regular rate and rhythm. Absent: diastolic murmur , JVD, systolic murmur - GI/Abdominal GI/Abdominal exam: Present: normal bowel sounds, soft. Absent: ascites, distended, mass, organomegaly, tenderness - Extremities Exam Extremities exam: Present: normal inspection, full ROM - Back Exam Back exam: Present: normal inspection - Neurological Exam Neurological exam: Present: alert, oriented X3 - Psychiatric Psychiatric exam: Present: normal affect, normal mood - Skin Skin exam: Present: normal color, warm, dry Results - Labs CBC & BMP: 08/29/16 05:24 08/29/16 05:24 Lab Results: I have reviewed the past 24 hour labs Specialty Discharge - Follow Up or Referrals Follow up with: Asher Crockett MD [Physician] -
[2016-08-29] MEDS: CIPROFLOXACIN INJ 400 MG in PREMIX 1 EACH IV SCH (13:01)
--- NOTE | 2016-08-29 13:37 | General Surgery Progress Note ---
Assessment and Plan (1) Crohns disease Status: Acute Assessment and plan: Impression: Crohn's disease with possible partial small bowel obstruction. Plan: Agree with present antibiotics. 2. Observation and IV fluids. 3. GI consult. 4. Primarily medical management. 08/29/2016. Patient with Crohn's disease but is better does not seem to have any symptoms to suggest bowel obstruction at this time. He is very ambulatory get about without any unusual problems. Awaiting for GI as this assessment evaluation at this point time. Current Visit: Yes Qualifiers: Gastrointestinal tract location: small intestine Digestive disease complication type: unspecified complication Qualified Code(s): K50.019 - Crohn 's disease of small intestine with unspecified complications Subjective Patient reports: Present: no new complaints, feels better, tolerating a regular diet, afebrile Exam - Constitutional Vitals: Period Temp Pulse Resp BP Sys/James Pulse Ox Last 24 Hr 97.7 F-98.8 F 73-90 18-20 109-154/62-77 94-100 General appearance: no acute distress - Head Head exam: Present: normal inspection - ENT ENT exam: Present: normal exam - Neck Neck exam: Present: normal inspection - Respiratory Respiratory exam: Present: clear to auscultation bilaterally - Cardiovascular Cardiovascular exam: Present: RRR - GI/Abdominal GI/Abdominal exam: Present: hypoactive bowel sounds, soft. Absent: distended, tenderness - Extremities Exam Extremities exam: Present: normal inspection - Back Exam Back exam: Present: normal inspection - Neurological Exam Neurological exam: Present: alert, oriented X3, CN II-XII intact - Skin Skin exam: Present: normal color, warm, dry Results - Labs CBC & BMP: 08/29/16 05:24 08/29/16 05:24 Lab Results: I have reviewed the past 24 hour labs Specialty Discharge - Follow Up or Referrals Follow up with: Asher Crockett MD [Physician] -
--- NOTE | 2016-08-29 15:18 | Discharge Summary ---
Hospital Course - Hospital Course Hospital Course: Mr. Garcia is a 71 year old male with Crohn's disease, hypertension, history of appendectomy and prostate surgery, who was admitted with acute onset of abdominal pain and nausea and vomiting around 9 AM the day of admission. He denies hematemesis. He denies flatus or BM today. His last bowel movement was yesterday. He had a CT abdomen pelvis showing high-grade partial SBO, and possible adhesions. His pain is rated an 8 out of 10 at worst, relieved with pain medication in the ER. His nausea has been relieved with antiemetics. He had diffuse lower abdominal pain, nonradiating. His symptoms have been constant and worsening since the morning of admission. He was admitted to the hospitalist service for continuation of care. He was started on ciprofloxacin, flagyl and solumedrol. Surgery and GI were consulted. He improved rather quickly , tolerating a soft diet today. Surgery recommended medical management. GI believes that due to his rapid improvement this is more consistent with adhesion related small bowel obstruction. GI recommends a two week course of ciprofloxacin with outpatient follow-up with them. He has now reached maximal benefit of inpatient stay and will be discharged home. - Time spent with patient Time with patient DS: Less than 30 minutes Diagnosis - Discharge Diagnosis (1) Essential hypertension Status: Chronic (2) Tobacco abuse Status: Chronic (3) Partial small bowel obstruction Status: Resolved (4) Crohns disease Status: Chronic (5) Chronic kidney disease, stage 3 Status: Chronic Specialty Discharge - Follow Up or Referrals Follow up with: Asher Peters MD [Physician] - Jovani Villavicencio MD [Physician] - 1 Month Discharge Plan - Discharge Data Disposition: Disch To Home/Self Care Condition at Discharge: Stable Discharge Diet: high fiber diet Activity: increase activity as tolerated Hygiene: no restrictions Weight Bearing at Discharge: weight bear as tolerated Driving: no restrictions Contact your physician if you experience:: fever over 101, Nausea/Vomiting, pain uncontrolled by pain medications - Discharge Medications New predniSONE TAB [PredniSONE] 20 mg PO DAILY #25 tablet Ciprofloxacin Tab [Cipro Tab] 500 mg PO BID #28 tablet Continue sulfaSALAzine [Sulfasalazine Dr] 500 mg PO DAILY amLODIPine [Norvasc] 10 mg PO QAM Lisinopril 20 mg PO QPM - Follow Up or Referral Follow Up: Asher Peters MD [Physician] - - Forms/Instructions Instructions: Crohn Disease (DC), Bowel Obstruction (DC) Exam - Constitutional Vitals: Period Temp Pulse Resp BP Sys/James Pulse Ox Last 24 Hr 97.7 F-98.8 F 73-90 18-20 109-154/62-77 94-100 General appearance: normal weight - Head Head exam: Present: normocephalic, atraumatic - Eye Eye exam: Present: EOMI Pupils: Present: CAMILA - Neck Neck exam: Present: normal inspection - Respiratory Respiratory exam: Present: clear to auscultation bilaterally. Absent: rhonchi, wheezes - Cardiovascular Cardiovascular exam: Present: regular rate and rhythm - GI/Abdominal GI/Abdominal exam: Present: normal bowel sounds, soft. Absent: tenderness, rebound - Extremities Exam Extremities exam: Present: normal inspection - Back Exam Back exam: Present: normal inspection - Neurological Exam Neurological exam: Present: alert, oriented X3 - Psychiatric Psychiatric exam: Present: normal affect, normal mood - Skin Skin exam: Present: warm, intact Discharge Results Procedures and tests throughout hospitalization: Pending Orders 08/27/16 23:12 Blood Culture Stat Labs on day of discharge: Labs from last 24 hours 08/29/16 08/29/16 05:24 05:24 WBC 20.8 H RBC 3.91 Hgb 12.0 L Hct 35.0 L MCV 89.5 MCH 31 MCHC 34.3 RDW 14.4 Plt Count 241 MPV 11.0 Neut % (Auto) 88.0 H Lymph % (Auto) 7.2 L [place] % (Auto) 3.7 Eos % (Auto) 0.0 Baso % (Auto) 0.1 Neut # (Auto) 18.3 H Lymph # (Auto) 1.5 [place] # (Auto) 0.8 Eos # (Auto) 0.0 Baso # (Auto) 0.0 Immature Gran % 1.0 Nucleated RBC % 0.0 Immature Gran # 0.21 Nucleated RBCs # 0.00 Platelet Estimate Normal Hypochromasia Slight Microcytosis Slight Sodium 140 Potassium 4.8 Chloride 108 H Carbon Dioxide 22 Anion Gap 14.8 BUN 27 H Creatinine 1.70 H GFR Calculation 45 BUN/Creatinine Ratio 15.00 Glucose 110 H Calculated Osmolality 284.4 Calcium 8.8 Magnesium 2.2 Preliminary micro results at discharge 08/28/16 00:25 Blood Culture - Preliminary Blood No growth at 1 day 08/28/16 00:25 Blood Culture - Preliminary Blood No growth at 1 day DS: Provider Date of admission: 08/27/16 23:10 Primary care physician: . No PCP Attending physician on admission: Scotty Anderson DO Consults: 08/27/16 23:10 Consult to Physician [CONS] Routine Comment: high grade partial sbo, crohns dz Consulting Provider: Consult to Specialist Group: Surgery When should Consulting Provider be notified: In am Person Notified: DR PETERS Date Notified: 08/28/16 Time Notified: 07:54 08/28/16 01:07 Consult to Physician [CONS] Routine Comment: partial sbo, crohns Consulting Provider: Consult to Specialist Group: Gastroenterology When should Consulting Provider be notified: In am Person Notified: DR CASTAÑEDA Date Notified: 08/28/16 Time Notified: 07:55 Discharging clinician: Danilo Hong MD
[2016-08-29 16:48] VITALS: BP 121/68
[2016-08-29] MEDS ORDERED: LISINOPRIL 20 MG TABLET PO SCH (19:00)
== END 2016-08-29 16:25 | disposition home or self-care (01) | DRG 389 ==
LOC: EDBD → EDUNIT# → N.ED 18:20 → SUATTDRO 23:10 → N.EDINP 23:10 → N.3E 23:35
PROVIDERS: ADMIT Internal Medicine; ATTEND Internal Medicine

== ENCOUNTER 2020-03-12 02:23 | Inpatient (IN) ==
[2020-03-12] MEDS ORDERED: GLUCAGON 1 MG VIAL IM PRN (04:57)
[2020-03-12] MEDS ORDERED: DEXTROSE 50% 25 GM/50 ML VIAL IV PRN (04:57)
[2020-03-12] MEDS ORDERED: MORPHINE 4 MG/1 ML VIAL IV PRN (05:03)
[2020-03-12] MEDS ORDERED: PROMETHAZINE 25 MG/1 ML VIAL IM PRN (05:04)
[2020-03-12] MEDS ORDERED: ONDANSETRON 4 MG/2 ML VIAL IV PRN (05:05)
[2020-03-12] MEDS: DEXTROSE 5% NACL 0.45% 1,000 ML IV SCH (05:22)
[2020-03-12] MEDS: metroNIDAZOLE INJ 500 MG in PREMIX 1 EACH IV SCH ×3 (05:24→19:10)
[2020-03-12] MEDS ORDERED: methylPREDNISolone SOD SUC 40 MG/1 ML VIAL IV SCH (06:00)
[2020-03-12] MEDS: CIPROFLOXACIN INJ 400 MG in PREMIX 1 EACH IV SCH ×2 (08:01→21:15)
[2020-03-12 08:58] LABS: Basophils # 0.1 10*3/uL (0.0-0.2); Basophils % 0.3 % (0.0-0.8); Eosinophils % 0.1 % (0.00-10.9); Hematocrit 37.3 VOL% (42.0-52.0); Hemoglobin 12.7 GM/DL (14.0-18.0); Immature Granulocytes % 0.6 %; Immature Granulocytes Absolute 0.12 #; Lymphocytes # 1.5 10*3/uL (1.4-4.0); Lymphocytes % 7.2 % (21.2-54.2); Mean Corpuscular Volume 90.8 FL (87-102); Mean Platelet Volume 10.8 FL (9.6-12.0); Monocytes % 5.7 % (1.7-12.7); Neutrophils % 86.1 % (38.7-73.9); Platelet Count 259 T/CUMM (130-400); Red Blood Count 4.11 MC/CUMM (3.8-5.5); White Blood Count 21.1 T/CUMM (4-12)
[2020-03-12 09:18] LABS: Hypochromasia 1+; Lymphocytes 6 % (20-55); Microcytosis 1+; Nucleated Red Blood Cells 1 (0-5); Platelet Estimate Adequate; Segmented Neutrophils 87 % (50-85); Total Cells Counted 100
[2020-03-12 09:24] LABS: Albumin 3.1 G/DL (3.4-5.0); Bilirubin,Total 0.7 MG/DL (0.2-1.0); Calcium 8.5 MG/DL (8.5-10.1); Total Protein 6.6 G/DL (6.4-8.3)
[2020-03-12] MEDS ORDERED: LORazepam 2 MG/1 ML VIAL IV ONE (19:25)
[2020-03-12] MEDS: methylPREDNISolone SOD SUC 40 MG/1 ML VIAL IV SCH (21:15)
[2020-03-13] MEDS: metroNIDAZOLE INJ 500 MG in PREMIX 1 EACH IV SCH ×5 (00:22→23:56)
[2020-03-13] MEDS: DEXTROSE 5% NACL 0.45% 1,000 ML IV SCH (01:32)
[2020-03-13 05:03] LABS: Basophils % 0.1 % (0.0-0.8); Hemoglobin 12.1 GM/DL (14.0-18.0); Immature Granulocytes % 0.6 %; Immature Granulocytes Absolute 0.08 #; Lymphocytes # 1.2 10*3/uL (1.4-4.0); Lymphocytes % 8.6 % (21.2-54.2); Mean Corpuscular HGB Conc 34.6 GM/DL (32-36); Mean Corpuscular Volume 89.3 FL (87-102); Mean Platelet Volume 10.4 FL (9.6-12.0); Monocytes % 1.1 % (1.7-12.7); Neutrophils % 89.6 % (38.7-73.9); Platelet Count 246 T/CUMM (130-400); Red Blood Count 3.92 MC/CUMM (3.8-5.5); Red Cell Distribution Width 14.1 % (9.3-17.3); White Blood Count 13.8 T/CUMM (4-12)
[2020-03-13] MEDS: methylPREDNISolone SOD SUC 40 MG/1 ML VIAL IV SCH ×3 (05:20→20:51)
[2020-03-13 05:30] LABS: Albumin 2.9 G/DL (3.4-5.0); Bilirubin,Total 1.2 MG/DL (0.2-1.0); Calcium 8.6 MG/DL (8.5-10.1); Osmolality,Calculated 286.4 MOS/KG (273-304); Total Protein 6.5 G/DL (6.4-8.3)
[2020-03-13] MEDS: CIPROFLOXACIN INJ 400 MG in PREMIX 1 EACH IV SCH ×2 (09:07→20:51)
[2020-03-14] MEDS: metroNIDAZOLE INJ 500 MG in PREMIX 1 EACH IV SCH (05:19)
[2020-03-14] MEDS: methylPREDNISolone SOD SUC 40 MG/1 ML VIAL IV SCH (05:19)
[2020-03-14 06:21] LABS: Basophils % 0.1 % (0.0-0.8); Hematocrit 33.2 VOL% (42.0-52.0); Hemoglobin 11.4 GM/DL (14.0-18.0); Immature Granulocytes % 1.3 %; Immature Granulocytes Absolute 0.33 #; Lymphocytes # 1.6 10*3/uL (1.4-4.0); Lymphocytes % 6.5 % (21.2-54.2); Mean Corpuscular HGB Conc 34.3 GM/DL (32-36); Mean Platelet Volume 10.7 FL (9.6-12.0); Monocytes % 3.1 % (1.7-12.7); Platelet Count 247 T/CUMM (130-400); Red Blood Count 3.69 MC/CUMM (3.8-5.5); Red Cell Distribution Width 13.6 % (9.3-17.3)
[2020-03-14 06:23] LABS: White Blood Count 25.2 T/CUMM (4-12)
[2020-03-14 06:41] LABS: Albumin 2.9 G/DL (3.4-5.0); Bilirubin,Total 0.5 MG/DL (0.2-1.0); Calcium 8.6 MG/DL (8.5-10.1); Osmolality,Calculated 286.4 MOS/KG (273-304); Total Protein 6.1 G/DL (6.4-8.3)
[2020-03-14 07:41] VITALS: BP 118/63
[2020-03-14 08:19] LABS: Anisocytosis 1+; Hypochromasia Slight; Lymphocytes 7 % (20-55); Macrocytosis 1+; Platelet Estimate Normal; Segmented Neutrophils 89 % (50-85); Target Cells Few; Total Cells Counted 100
[2020-03-14] MEDS: CIPROFLOXACIN INJ 400 MG in PREMIX 1 EACH IV SCH (10:55)
== END 2020-03-14 10:50 | disposition home or self-care (01) | DRG 389 ==
LOC: N.3E 03:56 → SUATTDRO 03:56
PROVIDERS: ADMIT Internal Medicine; ATTEND Family Medicine